=== PATIENT | male | born 1980 | race Caucasian/White ===

== ENCOUNTER 2017-11-30 09:17 | Emergency (ER) | payer MEDICAID ==
[~2017-11-30] VITALS: Ht 157.5 cm; Wt 54.4 kg
[2017-11-30 09:26] VITALS: BP 119/86
[2017-11-30] MEDS ORDERED: ACYCLOVIR 400400 MG PO (09:29)
[2017-11-30] MEDS ORDERED: PERCOCET 5-3251 EACH PO (09:29)
== END 2017-11-30 09:41 | disposition home or self-care (01) ==
LOC: M.ERS 09:17
DX: B02.9 Zoster without complications (principal)

== ENCOUNTER 2018-01-31 06:57 | Emergency (ER) | payer MEDICAID ==
[~2018-01-31] VITALS: Ht 162.6 cm; Wt 58.5 kg
[~2018-01-31 06:57] MED LIST: ACYCLOVIR 400400 MG PO; PERCOCET 5-3251 EACH PO
[2018-01-31 07:17] LABS: URINE BILIRUBIN NEGATIVE (Negative); URINE BLOOD 3+ (Negative); URINE CLARITY CLEAR; URINE COLOR YELLOW; URINE GLUCOSE-RANDOM NEGATIVE (Negative); URINE KETONES NEGATIVE (Negative); URINE LEUKOCYTES-REFLEX NEGATIVE (Negative); URINE NITRITE-REFLEX NEGATIVE (Negative); URINE PROTEIN NEGATIVE (Negative); URINE SPECIFIC GRAVITY 1.015 (1.005-1.030); URINE UROBILINOGEN 0.2 E.U./dl (0.2-1.0)
[2018-01-31 07:17] LABS: ABSOLUTE BASOPHILS 0.1 thou/uL (0.0-0.2); ABSOLUTE EOSINOPHILS 0.4 thou/uL (0.0-0.7); ABSOLUTE LYMPHOCYTES 2.5 thou/uL (0.8-5.3); ABSOLUTE MONOCYTES 0.7 thou/uL (0.0-1.2); ABSOLUTE NEUTROPHILS 3.9 thou/uL (1.6-8.1); BASOPHILS 0.8 %; EOSINOPHILS 5.3 %; HEMATOCRIT 48.6 % (42.0-52.0); HEMOGLOBIN 16.1 gm/dL (14.0-18.0); LYMPHOCYTES 32.9 %; MCH 33.3 pg (26.0-34.0); MCHC 33.2 g/dL (28.0-37.0); MCV 100.2 fL (80.0-100.0); MONOCYTES 9.4 %; MPV 10.1 fl. (7.2-11.1); NUCLEATED RBCS 0 /100WBC; PLATELET COUNT* 161 thou/uL (150-400); POLYS 51.6 %; RBC 4.85 mil/uL (4.50-6.00); RDW-CV 14.5 % (10.5-14.5); WBC 7.6 thou/uL (4.0-11.0)
[2018-01-31 07:21] LABS: BACTERIA-REFLEX None Seen /HPF (None Seen); CASTS None Seen /LPF (None Seen); MUCUS 4-6 Moderate strn/LPF (None Seen); SQUAMOUS NONE SEEN /LPF (0-3); URINE RBC >20 Many /HPF (0-2); URINE WBC-REFLEX None Seen /HPF (0-5)
[2018-01-31 07:22] LABS: CRYSTALS None Seen /LPF (None Seen)
[2018-01-31 07:24] LABS: CALCIUM 8.8 mg/dL (8.5-10.1); CREATININE 1.1 mg/dL (0.6-1.3); POTASSIUM 3.7 mmol/L (3.5-5.1)
[2018-01-31 07:36] LABS: ALBUMIN 4.3 g/dL (3.4-5.0); TOTAL BILIRUBIN 0.4 mg/dL (<0.1-1.0); TOTAL PROTEIN 7.6 g/dL (6.4-8.2)
[2018-01-31] MEDS ORDERED: ZOFRAN ODT4 MG DISSOLVE (07:55)
[2018-01-31] MEDS ORDERED: IBUPROFEN 800800 M1 PO (07:55)
[2018-01-31] MEDS ORDERED: HYDROCODONE-AP1 EAC6 PO (07:55)
[2018-01-31] MEDS ORDERED: FLOMAX0.4 MG PO (07:55)
[2018-01-31 08:26] VITALS: BP 111/59
== END 2018-01-31 08:27 | disposition home or self-care (01) ==
LOC: M.ERS 06:57
PROVIDERS: Emergency Medicine Emergency Medical Services
DX: N20.0 Calculus of kidney (principal)

== ENCOUNTER 2018-02-26 12:59 | Emergency (ER) | payer MEDICAID ==
[~2018-02-26] VITALS: Ht 162.6 cm; Wt 54.4 kg
[~2018-02-26 12:59] MED LIST changes: +FLOMAX0.4 MG PO; +HYDROCODONE-AP1 EAC6 PO; +IBUPROFEN 800800 M1 PO; +ZOFRAN ODT4 MG DISSOLVE
[2018-02-26] MEDS ORDERED: DEPRESSION/ANXIETY (13:11)
[2018-02-26 13:25] LABS: URINE BILIRUBIN NEGATIVE (Negative); URINE BLOOD NEGATIVE (Negative); URINE CLARITY CLEAR; URINE COLOR YELLOW; URINE GLUCOSE-RANDOM NEGATIVE (Negative); URINE KETONES NEGATIVE (Negative); URINE LEUKOCYTES-REFLEX NEGATIVE (Negative); URINE NITRITE-REFLEX NEGATIVE (Negative); URINE PROTEIN NEGATIVE (Negative); URINE UROBILINOGEN 0.2 E.U./dl (0.2-1.0)
[2018-02-26 13:30] LABS: ABSOLUTE BASOPHILS 0.1 thou/uL (0.0-0.2); ABSOLUTE LYMPHOCYTES 2.2 thou/uL (0.8-5.3); ABSOLUTE MONOCYTES 0.5 thou/uL (0.0-1.2); BASOPHILS 0.7 %; EOSINOPHILS 0.5 %; HEMATOCRIT 43.5 % (42.0-52.0); HEMOGLOBIN 14.8 gm/dL (14.0-18.0); LYMPHOCYTES 24.6 %; MCH 33.8 pg (26.0-34.0); MCV 99.4 fL (80.0-100.0); MONOCYTES 6.2 %; MPV 10.6 fl. (7.2-11.1); NUCLEATED RBCS 0 /100WBC; PLATELET COUNT* 194 thou/uL (150-400); RBC 4.38 mil/uL (4.50-6.00); RDW-CV 13.7 % (10.5-14.5); WBC 8.9 thou/uL (4.0-11.0)
[2018-02-26 13:37] LABS: CALCIUM 9.3 mg/dL (8.5-10.1); POTASSIUM 3.8 mmol/L (3.5-5.1)
[2018-02-26 13:42] LABS: ALBUMIN 4.5 g/dL (3.4-5.0); TOTAL BILIRUBIN 0.3 mg/dL (<0.1-1.0); TOTAL PROTEIN 7.5 g/dL (6.4-8.2)
[2018-02-26] MEDS ORDERED: NORCO 5-325 TA1 EACH PO (14:22)
[2018-02-26] MEDS ORDERED: FLOMAX0.4 MG PO (14:31)
[2018-02-26 14:45] VITALS: BP 136/88
== END 2018-02-26 14:46 | disposition home or self-care (01) ==
LOC: M.ERS 12:59
PROVIDERS: Physician Assistant
DX: N20.1 Calculus of ureter (principal); F41.9 Anxiety disorder, unspecified; F32.9 Major depressive disorder, single episode, unspecified; Z87.442 Personal history of urinary calculi